=== PATIENT | male | born 2000 | race Caucasian/White ===

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

== ENCOUNTER 2022-12-04 04:48 | Outpatient (CLI) | payer BC, SELFPAY ==
[2022-12-04 08:02] LABS: Hemoglobin A1C 5.4 % (<5.7)
[2022-12-04 08:04] LABS: Calculated LDL 179 mg/dL (<100); Cholesterol 236 mg/dL (<200); HDL Cholesterol 47 mg/dL (40-60); Triglyceride 53 mg/dL (<150)
== END 2022-12-04 04:49 | disposition home or self-care (01) ==
PROVIDERS: PCP Nurse Practitioner Family; Visit Provider Nurse Practitioner Family
DX: E78.00 Pure hypercholesterolemia, unspecified (principal); Z13.1 Encounter for screening for diabetes mellitus
CPT/HCPCS: 36415; 80061; 83036

== ENCOUNTER 2023-10-17 02:35 | Outpatient (CLI) | payer BC, SELFPAY ==
[2023-10-17 13:01] LABS: Hemoglobin A1C 5.4 % (<5.7)
[2023-10-17 13:09] LABS: Calculated LDL 106 mg/dL (<100); Cholesterol 165 mg/dL (<200); HDL Cholesterol 50 mg/dL (40-60); Triglyceride 46 mg/dL (<150)
== END 2023-10-17 02:36 | disposition home or self-care (01) ==
PROVIDERS: PCP Nurse Practitioner Family; Visit Provider Nurse Practitioner Family
DX: Z13.1 Encounter for screening for diabetes mellitus (principal); E78.00 Pure hypercholesterolemia, unspecified
CPT/HCPCS: 36415; 80061; 83036

== ENCOUNTER 2023-11-08 03:30 | Outpatient (CLI) | payer BC, SELFPAY ==
[2023-11-08 10:55] LABS: Abs Immature Grans 0.02 10^3/uL (0.0-0.06); Absolute Basophil Count 0.03 10^3/uL (0.0-0.2); Absolute Eosinophil Count 0.22 10^3/uL (0.0-0.7); Absolute Lymphocyte Count 2.14 10^3/uL (1.2-3.4); Absolute Monocyte Count 0.48 10^3/uL (0.1-0.8); Absolute Neutrophil Count 4.16 10^3/uL (1.2-6.7); Basophils % 0.4 %; Eosinophils % 3.1 %; HCT 47.5 % (40.0-50.0); HGB 16.2 g/dL (13.5-17.5); Immature Grans % 0.3 %; Lymphocytes % 30.4 %; MCHC 34.1 % (32.0-36.0); MCV 85 fL (80-95); MPV 9.4 fL (8.0-11.0); Monocytes % 6.8 %; Platelet Count 341 10^3/uL (130-400); RBC 5.58 10^6/uL (4.36-5.78); RDW 11.9 % (11.8-14.1); RDW-SD 36.9 fL; WBC 7.05 10^3/uL (4.4-10.8)
[2023-11-08 11:29] LABS: ALT 69 U/L (16-63); AST 34 U/L (15-37); Albumin 4.3 g/dL (3.4-5.0); Alkaline Phosphatase 67 U/L (46-116); Anion Gap 6.3 mmol/L (3-11); BUN 12 mg/dL (7-18); CO2 29.7 mmol/L (21.0-32.0); CREATININE 1.1 mg/dL (0.70-1.30); Calcium 9.6 mg/dL (8.5-10.1); Chloride 104 mmol/L (98-107); Estimated GFR 97.34 (mL/min/1.73m2); FREE T4 1.02 ng/dL (0.76-1.46); Glucose 97 mg/dL (74-106); Potassium 4.1 mmol/L (3.5-5.1); Sodium 140 mmol/L (136-145); TSH 1.99 uIU/Ml (0.36-3.74); Total Protein 7.7 g/dL (6.4-8.2)
[2023-11-08 11:38] LABS: Hemoglobin A1C 5.3 % (<5.7)
[2023-11-08 12:05] LABS: Vitamin D 25 Total 11.6 ng/mL (30-100)
[2023-11-08 18:35] LABS: T3, Total 162 ng/dL (97-169)
== END 2023-11-08 03:31 | disposition home or self-care (01) ==
PROVIDERS: PCP Nurse Practitioner Family; Visit Provider Nurse Practitioner Psychiatric/Mental Health
DX: Z00.00 Encounter for general adult medical examination without abnormal findings (principal); Z79.899 Other long term (current) drug therapy; E66.01 Morbid (severe) obesity due to excess calories; E55.9 Vitamin D deficiency, unspecified
CPT/HCPCS: 36415; 80053; 82306; 83036; 84439; 84443; 84480; 85025

== ENCOUNTER 2024-10-31 09:09 | Outpatient (CLI) | payer OTHER, SELFPAY ==
[2024-10-31 10:24] LABS: Hemoglobin A1C 5.2 % (<5.7)
[2024-10-31 10:49] LABS: ALT 46 U/L (16-63); AST 24 U/L (15-37); Albumin 4.1 g/dL (3.4-5.0); Alkaline Phosphatase 58 U/L (46-116); Anion Gap 8.0 mmol/L (3-11); BUN 14 mg/dL (7-18); Bilirubin, Total 1.1 mg/dL (0.2-1.0); CO2 29.0 mmol/L (21.0-32.0); Calcium 9.1 mg/dL (8.5-10.1); Calculated LDL 152 mg/dL (<100); Chloride 104 mmol/L (98-107); Cholesterol 200 mg/dL (<200); Estimated GFR 127.53 (mL/min/1.73m2); Glucose 90 mg/dL (74-106); HDL Cholesterol 40 mg/dL (>or=40); Potassium 4.0 mmol/L (3.5-5.1); Sodium 141 mmol/L (136-145); Total Protein 7.8 g/dL (6.4-8.2); Triglyceride 40 mg/dL (<150)
== END 2024-10-31 09:10 | disposition home or self-care (01) ==
LOC: LBO 09:09
PROVIDERS: PCP Nurse Practitioner Family; Visit Provider Nurse Practitioner Family
DX: Z13.1 Encounter for screening for diabetes mellitus (principal); Z13.220 Encounter for screening for lipoid disorders; E78.00 Pure hypercholesterolemia, unspecified; F32.9 Major depressive disorder, single episode, unspecified
CPT/HCPCS: 36415; 80053; 80061; 83036